=== PATIENT | female | born 1995 | race Caucasian/White ===

== ENCOUNTER 2020-05-05 16:53 | Emergency (ER) | payer OTHER ==
[2020-05-05 17:11] VITALS: BMI 22.6
[2020-05-05 17:18] VITALS: BP 109/60; PULSE 73; TEMP 98
[2020-05-05] MEDS ORDERED: METHOCARBAMOL 500 MG TABLET PO ONE (17:37)
[2020-05-05] MEDS ORDERED: METHOCARBAMOL 500 MG TABLET ONE (17:54)
[2020-05-05 18:07] LABS: HCG,QUALITATIVE URINE Negative
[2020-05-05 18:10] LABS: BASO % 2.9 % (0-2.0); HEMATOCRIT 36.5 % (32.4-45.2); LYMPH % 22.2 % (8-40); MCH 30.1 pg (25.7-33.7); MCHC 32.9 g/dl (32.0-36.0); MEAN CELL VOLUME 91.6 fl (80-96); MEAN PLT VOLUME 9.3 fl (7.5-11.1); MONO % 9.6 % (3.8-10.2); NEUT % 63.3 % (42.8-82.8); PLATELET COUNT 223 K/MM3 (134-434); RBC 3.99 M/mm3 (3.60-5.2); RDW 12.1 % (11.6-15.6); WHITE BLOOD COUNT 6.6 K/mm3 (4.0-10.8)
[2020-05-05 18:31] LABS: ALBUMIN 3.8 g/dl (3.4-5.0); BILIRUBIN,TOTAL 0.6 mg/dl (0.2-1); CALCIUM 9.2 mg/dl (8.5-10); CREATININE 0.7 mg/dl (0.55-1.3); TOT PROT 7.2 g/dl (6.4-8.2)
== END 2020-05-05 21:10 | disposition home or self-care (01) ==
LOC: FER 16:53
DX: R23.3 Spontaneous ecchymoses (principal); R60.9 Edema, unspecified
CPT/HCPCS: 36415; 70450-TC; 74177-TC; 80053; 81003; 84703; 85025; 99285-25; Q9967

== ENCOUNTER 2020-10-31 04:56 | Day surgery (SDC) | payer OTHER ==
[2020-10-29 13:43] VITALS: BMI 23.3
[2020-10-31] MEDS ORDERED: TRIAMCINOLONE ACET 40MG/1ML VIAL ONE (07:20)
[2020-10-31] MEDS ORDERED: LIDOCAINE HCL/PF 1% SDV 5ML VIAL ONE (07:20)
[2020-10-31] MEDS ORDERED: BUPIVACAINE HCL/PF 0.5% (5MG/ML) 10 ML VIAL ONE (07:20)
[2020-10-31] MEDS ORDERED: BUPIVACAINE HCL/PF 0.25% (2.5MG/ML) 10 ML VIAL ONE (11:41)
[2020-10-31] MEDS ORDERED: IOHEXOL 180 MG/1 ML ML IJ ONE (11:46)
[2020-10-31] MEDS ORDERED: BUPIVACAINE HCL/PF 0.25% (2.5MG/ML) 10 ML VIAL IJ ONE (11:47)
[2020-10-31] MEDS ORDERED: LIDOCAINE HCL 1%, 10 MG/ML (20ML VIAL) INF ONE (11:47)
[2020-10-31 12:56] VITALS: BP 107/65; PULSE 72; TEMP 98
== END 2020-10-31 12:40 | disposition home or self-care (01) ==
LOC: JASU-SURG 04:56
PROVIDERS: ATTEND Pain Medicine Pain Medicine
PROC: BQ40ZZZ Ultrasonography of Right Hip (ICD-10-PCS; 2020-10-31)
PROC: 3E0U3BZ Introduction of Anesthetic Agent into Joints, Percutaneous Approach (ICD-10-PCS; principal; 2020-10-31 08:00)
DX: S73.191A Other sprain of right hip, initial encounter (principal); Y93.9 Activity, unspecified; X58.XXXA Exposure to other specified factors, initial encounter
CPT/HCPCS: 76000-TC-FY; 81025

== ENCOUNTER 2020-12-26 08:36 | Day surgery (SDC) | payer OTHER ==
[2020-12-22 12:43] VITALS: BMI 23.3
[2020-12-26] MEDS ORDERED: BUPIVACAINE HCL/PF 0.25% (2.5MG/ML) 10 ML VIAL ONE ×2 (08:49→12:24)
[2020-12-26] MEDS ORDERED: EPINEPHrine 1:1,000 1 MG/1 ML - 30ML VIAL (INJECTION) ONE (08:50)
[2020-12-26] MEDS ORDERED: ONDANSETRON 4 MG/2 ML VIAL IVPUSH PRN (08:59)
[2020-12-26] MEDS ORDERED: oxyCODONE HCL 5 MG TABLET PO PRN (08:59)
[2020-12-26] MEDS ORDERED: LACTATED RINGERS SOLUTION 1,000 ML IV SCH (09:00)
[2020-12-26] MEDS ORDERED: MIDAZOLAM HCL 2 MG/2 ML SINGLE DOSE VIAL ONE ×2 (09:12)
[2020-12-26] MEDS ORDERED: PROPOFOL 20 ML ONE ×4 (09:12→12:02)
[2020-12-26] MEDS ORDERED: BUPIVACAINE HCL/PF 0.5% (5MG/ML) 10 ML VIAL ONE (09:21)
[2020-12-26] MEDS ORDERED: DEXAMETHASONE SOD PHOSPHATE 4 MG/1 ML VIAL ONE (09:53)
[2020-12-26] MEDS ORDERED: ceFAZolin SODIUM 1 GM VIAL ONE (09:53)
[2020-12-26] MEDS ORDERED: ONDANSETRON 4 MG/2 ML VIAL ONE ×2 (09:53→13:24)
[2020-12-26] MEDS ORDERED: KETOROLAC TROMETHAMINE 30 MG/1 ML VIAL ONE (09:53)
[2020-12-26] MEDS ORDERED: BUPIVACAINE HCL/PF 0.25% (2.5MG/ML) 10 ML VIAL IJ ONE (12:25)
[2020-12-26 14:16] VITALS: TEMP 97.8
[2020-12-26] MEDS ORDERED: oxyCODONE HCL 5 MG TABLET ONE (14:26)
[2020-12-26 16:06] VITALS: BP 116/71; PULSE 68
== END 2020-12-26 16:30 | disposition home or self-care (01) ==
LOC: FASU 08:36
PROVIDERS: ATTEND Orthopaedic Surgery Sports Medicine
PROC: 0QB44ZZ Excision of Right Acetabulum, Percutaneous Endoscopic Approach (ICD-10-PCS; 2020-12-26)
PROC: 0SQ94ZZ Repair Right Hip Joint, Percutaneous Endoscopic Approach (ICD-10-PCS; principal; 2020-12-26 08:30)
DX: S73.191A Other sprain of right hip, initial encounter (principal); M24.151 Other articular cartilage disorders, right hip; X58.XXXA Exposure to other specified factors, initial encounter; Y93.9 Activity, unspecified; Y92.9 Unspecified place or not applicable
CPT/HCPCS: 81025; 94760